=== PATIENT | female | born 2000 | race Caucasian/White ===

== ENCOUNTER 2021-07-21 17:36 | Emergency (ER) | payer OTHER ==
[2021-07-21 18:04] VITALS: TEMP 98.3
[2021-07-21 19:49] VITALS: BP 108/71; PULSE 74
== END 2021-07-21 19:49 | disposition home or self-care (01) ==
LOC: COL.ER 17:36
DX: S93.402A Sprain of unspecified ligament of left ankle, initial encounter (principal); X50.1XXA Overexertion from prolonged static or awkward postures, initial encounter; Y93.01 Activity, walking, marching and hiking